=== PATIENT | male | born 1980 | race Caucasian/White ===

== ENCOUNTER 2020-12-28 10:07 | Outpatient (REF) | payer OTHER, SELFPAY | END 2020-12-28 10:08 | disposition home or self-care (01) | LOC: HO.SCI 10:07 | PROVIDERS: Visit Provider Psychiatry & Neurology Neurology | DX: Z13.89 Encounter for screening for other disorder (principal) ==

== ENCOUNTER → 2021-01-22 15:47 | Outpatient (REF) | payer OTHER, SELFPAY | LOC: HO.SL 15:47 | PROVIDERS: Visit Provider Psychiatry & Neurology Neurology | DX: G47.33 Obstructive sleep apnea (adult) (pediatric) (principal) | CPT/HCPCS: 95806 ==

== ENCOUNTER 2022-07-29 14:34 | Emergency (ER) | payer OTHER, SELFPAY ==
--- OUTSIDE RECORDS SUMMARY | 2022-07-29 15:00 | XMS_ITS | Continuity of Care Document ---
Author Name Unknown Organization [facility] Address [address] [place] [address] [address] [place] [address]- Care Team Providers Care Gore Seamer Name Role Phone Not on Staff, PCP Primary Care Physician Unavail able Encounter [facility] Date(s): 07/15/19 - 08/14/[address] [place] [address]- [facility] Attending Physician: Cameron Vee Admitting Physician: Cameron Vee Referring Physician: AdmtrCameron Allergies, Adverse Reactions, Alerts Substance Reaction Severity Status NKA Active Medications Acetaminophen = 325 mg, By Mouth, Every 4 hours, 0 Refills, Maintenance, 07/15/19 10:28:00 EDT Start Date: 07/15/19 Status: Ordered Problem List Condition Effective Dates Status Health Status Inform ant Lesion of lung-bilATERAL cys ts ? etiology(Confirmed) Active Pneumonia(Confirmed) Active Tobacco abuse(Confirmed) Active Social History Social History Type Response Smoking Status Never (less than 100 in lifetime) entered on: 07/06/19 Sex
--- OUTSIDE RECORDS SUMMARY | 2022-07-29 15:00 | XMS_ITS | Continuity of Care Document ---
Author Name Unknown Organization [facility] Address [address] [place] [address]- Care Team Providers Care Senior Instructor Name Role Phone Bishnu ARIZA MD, Noe Maddox Primary Care Physician [phone] [facility] [place] Date(s): 04/16/21 - 08/14/21 [facility] [address] [place] [address]- Attending Physician: Justo Butcher MD Admitting Physician: Justo Butcher MD Referring Physician: Noe Goetz III, MD Allergies, Adverse Reactions, Alerts No Known Allergies Medications Acetaminophen = 325 mg, By Mouth, [...]
--- OUTSIDE RECORDS SUMMARY | 2022-07-29 15:00 | XMS_ITS | Continuity of Care Document ---
Author Name Unknown Organization [facility] Address [address] [place] [address] [address] [place] [address]- Care Team Providers Care Movement Assembler Name Role Phone Not on Staff, PCP Primary Care Physician Unavail able [place] [facility] [place] - 07/22/[address] [place] [address]- [facility] Encounter Diagnosis RLQ abdominal pain(Discharge Diagnosis) - 07/15/19 Attending Physician: Rico Brooke Referring Physician: Not on Staff, Referring MD Allergies, Adverse Reactions, Alerts Substance Reaction Severity Status NKA Active Medications Acetaminophen = 325 mg, By Mouth, Every 4 hours, 0 Refills, Maintenance, 07/15/19 10:28:00 EDT Start Date: 07/15/19 Status: Ordered Problem List Condition Effective Dates Status Health Status Inform ant Lesion of lung-bilATERAL cys ts ? etiology(Confirmed) Active Pneumonia(Confirmed) Active Tobacco abuse(Confirmed) Active Diagnosis Diagnosis Type Effective Dates Health Status Cl inical Service Informant RLQ abdominal pain Discharge Diagnosis 07/15/19 Vital Signs Most recent to oldest [Reference Range]: 1 Height 172 cm (07/15/19 10:21 AM) Weight 75.5 kg (07/15/19 10:21 AM) Pulse Rate [55-90 bpm] 71 bpm (07/15/19 10:21 AM) Body Mass Index [18.5-24.99] 25.52 *H* (07/15/19 10:21 AM) Blood Pressure [90-138/55-84 mm Hg] 112/ 75mm Hg (07/15/19 10:21 AM) Respiratory Rate [16-30 br/min] 16 br/mi n (07/15/19 10:21 AM) Blood pressure sites Arm, right (07/15/19 10:21 AM) Weight Obtained Via Standing scale (07/15/19 10:21 AM) Social History Social History Type Response Smoking Status Never (less than 100 in lifetime) entered on: 07/06/19 Sex
--- OUTSIDE RECORDS SUMMARY | 2022-07-29 15:00 | XMS_ITS | Continuity of Care Document ---
Author Name Unknown Organization [facility] Address [address] [place] [address]- Care Team Providers Care Seo Executive Name Role Phone Bishnu ARIZA MD, Noe Maddox Primary Care Physician Encounter [facility] [place] Date(s): 07/15/21 - 08/14/21 [facility] [address] [place] [address]- Attending Physician: Cameron Vee Admitting Physician: Cameron Vee Referring Physician: Cameron Vee Allergies, Adverse Reactions, Alerts No Known Allergies [...]
--- OUTSIDE RECORDS SUMMARY | 2022-07-29 15:00 | XMS_ITS | Continuity of Care Document ---
Author Name Unknown Organization [facility] Address [address] [place] [address] [address] [place] [address]- Care Team Providers Care Awning Hanger Helper Name Role Phone Not on Staff, PCP Primary Care Physician Unavail able Encounter [facility] Date(s): 07/06/19 - 07/13/[address] [place] [address]- [facility] Encounter Diagnosis Appendicitis(Discharge Diagnosis) - 07/06/19 Postop check(Discharge Diagnosis) - 07/06/19 Attending Physician: Rico Brooke Referring Physician: Not on Staff, Referring MD Allergies, Adverse Reactions, Alerts Substance Reaction Severity Status NKA Active Medications No Known Medications Problem List Condition Effective Dates Status Health Status Inform ant Lesion of lung-bilATERAL cys ts ? etiology(Confirmed) Active Pneumonia(Confirmed) Active Tobacco abuse(Confirmed) Active Diagnosis Diagnosis Type Effective Dates Health Status Cl inical Service Informant Appendicitis Discharge Diagnosis 07/06/19 Postop check Discharge Diagnosis 07/06/19 Vital Signs Most recent to oldest [Reference Range]: 1 Height 172 cm (07/06/19 1:01 PM) Weight 75.2 kg (07/06/19 1:01 PM) Pulse Rate [55-90 bpm] 81 bpm (07/06/19 1:01 PM) Body Mass Index [18.5-24.99] 25.42 *H* (07/06/19 1:01 PM) Blood Pressure [90-138/55-84 mm Hg] 104/ 72mm Hg (07/06/19 1:01 PM) Respiratory Rate [16-30 br/min] 16 br/mi n (07/06/19 1:01 PM) Blood pressure sites Arm, left (07/06/19 1:01 PM) Weight Obtained Via Standing scale (07/06/19 1:01 PM) Social History Social History Type Response Smoking Status Never (less than 100 in lifetime) entered on: 07/06/19 Sex
--- OUTSIDE RECORDS SUMMARY | 2022-07-29 15:00 | XMS_ITS | Continuity of Care Document ---
Author Name Unknown Organization [facility] ter Address [address] [place] [address]- Care Team Providers Care Overhauler Name Role Phone Noe Goetz III, MD Primary Care Physician Encounter [facility] [place] Date(s): 07/05/20 - 07/05/[address] [address]- Discharge Disposition: A-D/C Home Attending Physician: Donaldo Villa DO Admitting Physician: Donaldo Villa DO Referring Physician: Not on Staff, Referring MD Allergies, Adverse Reactions, Alerts Substance Reaction Severity Status NKA Active Medications Acetaminophen = 325 mg, By Mouth, Every 4 hours, 0 Refills, Maintenance, 07/15/19 10:28:00 EDT Start Date: 07/15/19 Status: Ordered Acetaminophen Tablet 975 mg, Tablet, By Mouth, Once, STAT, 07/05/20 12:35:00 EDT, Stop date 07/05/20 12:35:00 EDT Start Date: 07/05/20 Stop Date: 07/05/20 Status: Completed Toradol Inj 10 mg, Injection, IV Push Slowly, Once, STAT, 07/05/20 14:56:00 EDT, Stop date 07/05/20 14:56:00 EDT Start Date: 07/05/20 Stop Date: 07/05/20 Status: Completed Problem List Condition Effective Dates Status Health Status Inform ant Lesion of lung-bilATERAL cys ts ? etiology(Confirmed) Active Pneumonia(Confirmed) Active Tobacco abuse(Confirmed) Active Vital Signs Most recent to oldest [Reference Range]: 1 2 3 Height 173 cm (07/05/20 12:03 PM) Weight 75.2 kg (07/05/20 12:03 PM) Oxygen Saturation [94-100 %] 100 % (07/05/20 4:02 PM) 100 % (07/05/20 12:03 PM) 100 % (07/05/20 11:44 AM) Pulse Rate [55-90 bpm] 67 bpm (07/05/20 4:02 PM) 83 bpm (07/05/20 12:03 PM) 80 bpm (07/05/20 11:44 AM) Body Mass Index [18.5-24.99] 25.13 *H* (07/05/20 12:03 PM) Blood Pressure [90-138/55-84 mm Hg] 113/68mm Hg (07/05/20 4:02 PM) 120/72mm Hg (07/05/20 12:03 PM) Respiratory Rate [16-30 br/min] 18 br/min (07/05/20 4:20 PM) 16 br/min (07/05/20 4:02 PM) 18 br/min (07/05/20 3:57 PM) Temperature [96.8-100.4 DegF] 97.6 DegF (07/05/20 4:02 PM) 98.4 DegF (07/05/20 12:03 PM) Mode of Delivery (Oxygen) Room air (07/05/20 4:02 PM) Room air (07/05/20 12:03 PM) Room air (07/05/20 11:44 AM) Blood pressure sites Arm, left (07/05/20 4:02 PM) Arm, left (07/05/20 12:03 PM) Temperature Route Oral (07/05/20 4:02 PM) Oral (07/05/20 12:03 PM) Dry Weight 75.2 kg (07/05/20 12:03 PM) Weight Obtained Via Standing scale (07/05/20 12:03 PM) Dry Weight Obtained Via Standing scale (07/05/20 12:03 PM) Social History Social History Type Response Smoking Status Never (less than 100 in lifetime) entered on: 07/06/19 Sex
--- OUTSIDE RECORDS SUMMARY | 2022-07-29 15:00 | XMS_ITS | Continuity of Care Document ---
Author Name Unknown Organization [facility] ter Address [address] [place] [address]- Care Team Providers Care Setter Off Name Role Phone Bishnu ARIZA MD, Noe Maddox Primary Care Physician [place] [facility] [place] Date(s): 03/06/21 - 03/06/[address] [address]- Discharge Disposition: A-D/C Home Attending Physician: Danica Mei MD Admitting Physician: Danica Mei MD Referring Physician: Not on Staff, Referring MD [...] to oldest [Reference Range]: 1 2 3 Oxygen Saturation [94-100 %] 100 % (03/06/21 12:20 PM) 100 % (03/06/21 11:03 AM) 100 % (03/06/21 10:57 AM) Pulse Rate [55-90 bpm] 85 bpm (03/06/21 12:20 PM) 100 bpm *H* (03/06/21 11:03 AM) 108 bpm *H* (03/06/21 10:57 AM) Blood Pressure [90-138/55-84 mm Hg] 124/77mm Hg (03/06/21 12:20 PM) 123/80mm Hg (03/06/21 11:03 AM) Respiratory Rate [16-30 br/min] 20 br/min (03/06/21 12:20 PM) 20 br/min (03/06/21 11:03 AM) Temperature [96.8-100.4 DegF] 97.5 DegF (03/06/21 12:20 PM) 97.6 DegF (03/06/21 11:03 AM) Mode of Delivery (Oxygen) Room air (03/06/21 12:20 PM) Room air (03/06/21 11:03 AM) Room air (03/06/21 10:57 AM) Blood pressure sites Arm, right (03/06/21 12:20 PM) Arm, right (03/06/21 11:03 AM) Temperature Route Oral (03/06/21 12:20 PM) Oral (03/06/21 11:03 AM) Social History Social History Type Response Smoking Status Never (less than 100 in lifetime) entered on: 07/06/19 Sex
== END 2022-07-29 16:29 | disposition left against medical advice (07) ==
PROVIDERS: Emergency Provider Emergency Medicine; PCP Internal Medicine
DX: R07.9 Chest pain, unspecified (principal)